=== PATIENT | male | born 1935 | race Asian ===

== ENCOUNTER → 2016-12-24 | Outpatient (CLI) | payer MEDICARE, BC ==
[~2016-12-24] MED LIST: ACETAMINOPHEN PO; ALLEGRA PO; AMARYL PO; APRESOLINE; ARICEPT5 MG PO; BENADRYL25 M3 PO; CATAPRES0.1 MG; CELEBREX50 MG; CIPRO250 M1 PO; CITRACAL200 M1; CLARITIN10 M3 PO; CLONIDINE HCL0.1 MG PO; CO Q-1010 MG; COATED ASPIRIN325 M1 PO; COZAAR; CRESTOR; CRESTOR10 MG PO; D3; DULCOLAX5 MG; FENOFIBRATE160 MG PO; FERROUS SULFATE PO; FLAGYL250 MG PO; FLOMAX0.4 M1; FLOMAX0.4 M1 PO; FUROSEMIDE40 MG PO; GLIMEPIRIDE1 M1 PO; GLYNASE; HYDRALAZINE HC100 MG PO; HYDRALAZINE HCL50 MG PO; IRON18 MG; LASIX PO; LASIX20 MG; LATANOPROST2.5 ML OP; METOPROLOL SUCC50 MG PO; MIRALAX17 G2 PO; MIRALAX17 GM PO; MULTI VITAMIN1 EACH PO; MULTI-DAY VITAM1 TAB; NORVASC2.5 MG PO; PLAVIX PO; PREDNISONE1 MG PO; SENNA8.6 M1 PO; SLEEP MD; SLEEPING TABLET25 M1; SOMNAPURE PO; SV FLAXSEED OI1 EACH PO; TART CHERRY CA1 EACH; TOPROL; TOPROL XL50 MG PO; TYLENOL PM; ULORIC40 MG; ULORIC80 MG PO; [UNRECOGNIZED DRUG - CODE]; [UNRECOGNIZED DRUG - OTHER]
--- NOTE | ~2016-12-24 | CT14 ---
[facility] A Service of [facility] & [facility] RADIOLOGY TEXT RESULTS PATIENT: NAHUN PRINGLE LOCATION: [facility] : 33 UNIT #: [id number] AGE: [address]: SABINA MCKEON MD SEX: M ORDER DR: [id number] [facility] [address] [place], [place] [address] [id number] O MR#: [id number] Acc #: [id number] NAME: NAHUN PRINGLE : 1935 SEX: M STUDY DATE/TIME: 12/24/2016 14:25 UNIT: [facility] ROOM: STUDY DESCRIPTION: CT Angio Abdomen and Pelvis Attending Physician: Sabina Mckeon Referring Physician: Sabina Mckeon Ordering Physician: Nikhil Mckeon M.D. Primary Care Physician: Mega Ivory M.D. MEDICAL IMAGING REPORT This report is preliminary unless electronic signature is present EXAM CT angiogram of the abdomen and pelvis, with and without contrast. HISTORY 81-year-old male with history of aortic aneurysm and EVAR. Routine follow-up. TECHNIQUE CT angiogram, abdomen and pelvis, performed before and after administration of IV contrast, using a multiphase stent graft protocol. Coronal, sagittal, and 3-D reformatted images were obtained. This CT exam was performed with one or more of the following radiation dose reduction techniques: automatic exposure control, adjustment of mA and/or kV according to patient size, and iterative reconstruction. COMPARISON STUDIES 12/24/2016 FINDINGS There is an EVAR. The stent graft is widely patent. There is no definite endoleak within the aneurysm sac. The aneurysm sac size is slightly smaller, measuring 5.6 x 5.1 cm. Previously, it was 5.8 x 5.2 cm. Above the stent graft, there is aneurysmal dilatation of the abdominal aorta, measuring about 5.6 x 4.9 cm. This is slightly larger than the prior study, where it measured 5.6 x 4.7 cm. The celiac artery is patent without significant narrowing. There is minimal narrowing at the origin of the superior mesenteric artery. There appear to be 2 right renal arteries. The cranial-most right renal artery is stented. The Caudal-most renal artery on the right demonstrates extensive plaque at its origin. Both of the renal arteries do appear patent. On the left, there are also 2 separate renal arteries. The main left renal artery does have some plaque at its origin, with significant narrowing. 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 [facility] A Service of [facility] RADIOLOGY TEXT RESULTS PATIENT: NAHUN PRINGLE LOCATION: [facility] : 33 UNIT #: [id number] AGE: [address]: SABINA MCKEON MD SEX: M ORDER DR: increased in size. Stable 1.9-cm dilatation of the left common iliac artery just after the distal end of the stent. Stable coils in the right internal iliac artery. CT OF THE ABDOMEN: There is scarring/atelectasis in the lung bases. Cholecystectomy. Liver unremarkable. Small cyst in the spleen. Both kidneys are small. The adrenal glands are unremarkable. The pancreas is unremarkable. PELVIS: There is diffuse thickening of the urinary bladder. Redemonstrated is irregular nodular enhancing soft tissue within the inferior portion of the urinary bladder. This may reflect prostatic tissue; however, mass cannot be excluded, as before. Consider urologic consultation. The colon is unremarkable. The appendix is normal. Bone windows demonstrate degenerative changes of the lumbar spine. IMPRESSION 1. Prior EVAR. 2. No definite endoleak. 3. Stent graft is patent. 4. Stable to slightly decreased aneurysm sac size. 5. Above the stent graft, there is slight increase in size of aneurysmal dilatation of the aorta, as described. Measurements as above. 6. Slightly increased left internal iliac artery size; measurements as above. 7. Additional findings, as described above in the body of the report are stable. Please see full report for complete details. Dictated by... Dung Cardona M.D. THIS IS AN ELECTRONICALLY VERIFIED REPORT Dung Cardona M.D. at 12/26/2016 4:31 PM KOSTA/chava TD: 12/26/2016 13:42 JOB #: [id number] MEDICAL IMAGING REPORT COPY
== END | disposition home or self-care (01) ==
LOC: CCAT 13:40
DX: I71.4 Abdominal aortic aneurysm, without rupture (principal); Z95.828 Presence of other vascular implants and grafts; Z98.890 Other specified postprocedural states
CPT/HCPCS: 74174; Q9967

== ENCOUNTER → 2017-04-03 | Outpatient (CLI) | payer MEDICARE, BC ==
--- NOTE | ~2017-04-03 | OR ---
Unit #: [id number] #: [id number] Patient: NAHUN PRINGLE [id number] [address] [place], [place] [address] [id number] O MR#: [id number] NAME: NAHUN PRINGLE ROOM: Date of Procedure: 04/03/2017 Admission Date: 04/03/2017 Surgeon: Quinn Sellers M.D. : 1935 Attending Physician: Quinn Sellers M.D. Primary Care Physician: Mega Ivory M.D. OPERATIVE REPORT PREOPERATIVE DIAGNOSIS Poorly functioning right arm arteriovenous fistula. POSTOPERATIVE DIAGNOSIS Poorly functioning right arm arteriovenous fistula. PROCEDURES PERFORMED 1. Right arm fistulogram. 2. Balloon angioplasty of the right innominate vein, cephalic vein, and fistula with 8 mm x 60 mm balloon. ANESTHESIA Conscious sedation. INDICATIONS FOR PROCEDURE This is a patient with a right brachiocephalic arteriovenous fistula with known previous stenosis who has had a pulsatile flow to it. He was recommended right arm fistulogram and possible intervention. He had a tunneled catheter through the right IJ. Risks and benefits were explained to the patient's family, who understood and agreed to proceed. DESCRIPTION OF PROCEDURE The patient was brought to the angiography suite and placed supine. He was monitored by a nurse in the room and remained stable. The right arm was cleaned, prepped, and draped in the usual sterile fashion. 1% lidocaine was infiltrated and right arm arteriovenous fistula was accessed using a 4-Palestinian micropuncture needle and a micro sheath was placed. Contrast was injected and images were obtained to the right atrium. After deciding to intervene, the sheath was exchanged for a 6-Palestinian sheath. A Glidewire was used to negotiate the stenosis into the right atrium. An 8 mm x 60 mm balloon was used to balloon angioplasty the innominate vein, axillary vein, and cephalic vein sequentially. High-grade stenosis was noted in all these areas which opened up nicely. Post angioplasty images revealed excellent results. There was some amount of the recoil of the innominate vein around the tunneled catheter. Sheaths and wires were removed and 4-0 Monocryl suture was used to close the hole in the skin. The patient was transported to the recovery room in stable condition. FINDINGS Right brachiocephalic AV fistula is patent. It however has multiple areas Unit #: [id number] #: [id number] Patient: NAHUN PRINGLE A of narrowing in the mid arm, distal arm near the shoulder and the cephalic arch. There is a high-grade stenosis of the innominate vein around the tunneled catheter as before. Postangioplasty images revealed good flow through all this areas with minimal residual narrowing and some recoil around the innominate vein. Dictated by... Uma Holm TD: 04/14/2017 09:34 JOB #: [id number] OPERATIVE REPORT Page 1 of 1 X Quinn Sellers MD X PROCEDURE OPERATIVE NOTE
[2017-04-03 12:30] LABS: INR 1.1; PARTIAL THROMBOPLASTIN TIME 24.4 SECONDS (23.5-31.3); PROTHROMBIN TIME (PATIENT) 11.4 SECONDS (10.0-11.7)
[2017-04-03 12:45] LABS: BUN/CREATININE RATIO 5.51; CREATININE SERUM 4.9 mg/dL (0.6-1.4); GLOM FILT RATE Estimated 10.1 mL/min (>60); POTASSIUM 4.3 mmol/L (3.5-5.1)
== END | disposition home or self-care (01) ==
LOC: CIVR 11:01
PROVIDERS: Surgery Vascular Surgery
DX: T82.590A Other mechanical complication of surgically created arteriovenous fistula, initial encounter (principal); I12.0 Hypertensive chronic kidney disease with stage 5 chronic kidney disease or end stage renal disease; E11.22 Type 2 diabetes mellitus with diabetic chronic kidney disease; N18.6 End stage renal disease; D63.1 Anemia in chronic kidney disease; Z99.2 Dependence on renal dialysis; I25.10 Atherosclerotic heart disease of native coronary artery without angina pectoris; I71.4 Abdominal aortic aneurysm, without rupture; I73.9 Peripheral vascular disease, unspecified; I48.91 Unspecified atrial fibrillation
CPT/HCPCS: 36415; 80048; 85610; 85730; C1725; C1894; J2250; J3010; Q9967

== ENCOUNTER → 2017-05-20 | Outpatient (CLI) | payer MEDICARE, BC ==
--- NOTE | ~2017-05-20 | US6 ---
[facility] A Service of [facility] & [facility] RADIOLOGY TEXT RESULTS PATIENT: NAHUN PRINGLE LOCATION: [facility] : 33 UNIT #: [id number] AGE: [address]: Himanshu Cornejo MD SEX: M ORDER DR: [id number] [facility] [address] [place], [place] [address] [id number] O MR#: [id number] Acc #: [id number] NAME: NAHUN PRINGLE : 1935 SEX: M STUDY DATE/TIME: 05/20/2017 10:44 UNIT: [facility] ROOM: STUDY DESCRIPTION: US Abdominal Limited Attending Physician: Himanshu Cornejo M.D. Referring Physician: Himanshu Cornejo M.D. Ordering Physician: Himanshu Cornejo M.D. Primary Care Physician: Mega Ivory M.D. MEDICAL IMAGING REPORT This report is preliminary unless electronic signature is present EXAM Right upper quadrant ultrasound 05/20/2017 HISTORY Chronic hepatitis B. Observation for hepatocellular carcinoma and cirrhosis. Cholecystectomy. Hypertension and hyperlipidemia. Patient on renal dialysis. FINDINGS The liver demonstrates a coarsened echotexture but no cystic or solid mass lesions are seen within the liver. The intra and extrahepatic bile ducts are not dilated. The gallbladder is surgically absent as per patient history. The common bile duct measures 2 mm. The pancreas is normal. The right kidney is atrophic measuring 7.6 cm in greatest diameter with increased cortical echogenicity and cortical thinning characteristic of medical renal disease. No evidence of hydronephrosis. IMPRESSION 1. Coarsened liver echotexture. No cystic or solid mass lesions identified within the liver. 2. Surgical absence of the gallbladder. 3. Right renal atrophy. Dictated by... Yaw Ward M.D. THIS IS AN ELECTRONICALLY VERIFIED REPORT Yaw Ward M.D. at 05/21/2017 2:37 PM EMELY/kori TD: 05/20/2017 19:49 JOB #: [id number] [facility] A Service of [facility] & [facility] RADIOLOGY TEXT RESULTS PATIENT: NAHUN PRINGLE LOCATION: [facility] #: [id number] : 33 UNIT #: [id number] AGE: [address]: Himanshu Cornejo MD SEX: M ORDER DR: MEDICAL IMAGING REPORT Page 1 of 1 COPY
== END | disposition home or self-care (01) ==
LOC: CGUS 05-15 09:00
DX: B18.1 Chronic viral hepatitis B without delta-agent (principal); K76.89 Other specified diseases of liver; N26.1 Atrophy of kidney (terminal); Z90.49 Acquired absence of other specified parts of digestive tract
CPT/HCPCS: 76705

== ENCOUNTER 2017-05-23 17:18 | Inpatient (IN) | payer MEDICARE, BC ==
[~2017-05-23] VITALS: Ht 165.1 cm; Wt 75.0 kg
--- NOTE | ~2017-05-23 | CR72 ---
[facility] A Service of [facility] RADIOLOGY TEXT RESULTS PATIENT: NAHUN PRINGLE LOCATION: [facility] - : 33 UNIT #: [id number] AGE: [address]: Morena Stevenson MD SEX: M ORDER DR: [id number] [facility] [address] [place], [place] [address] [id number] I MR#: [id number] Acc #: [id number] NAME: NAHUN PRINGLE : 1935 SEX: M STUDY DATE/TIME: 05/23/2017 21:27 UNIT: [address] ROOM: [facility] STUDY DESCRIPTION: CR Chest Single View Portable Attending Physician: Morena Stevenson M.D. Referring Physician: Edwin Collins M.D. Ordering Physician: Ed Wilner Vazquez M.D. Primary Care Physician: Mega Ivory M.D. MEDICAL IMAGING REPORT This report is preliminary unless electronic signature is present EXAM Single view chest. INDICATIONS Fever for 1 day. Cough and shortness of air. FINDINGS Single portable AP view of the chest compared to 07/23/2016. There is a right IJ dual-lumen catheter terminating over the right atrium. There is left chest wall pacemaker. The heart is enlarged. There are chronic interstitial opacities that are unchanged. No pneumothorax or pleural effusion. IMPRESSION 1. Stable cardiomegaly and chronic interstitial change. No new findings. Dictated by... Rashid Gray M.D. THIS IS AN ELECTRONICALLY VERIFIED REPORT Rashid Gray M.D. at 05/24/2017 8:02 PM TERA/dior TD: 05/24/2017 18:16 JOB #: [id number] MEDICAL IMAGING REPORT Page 1 of 1 COPY
--- NOTE | ~2017-05-23 | CO ---
Unit #: [id number] #: [id number] Patient: NAHUN CAMPOS [id number] [address] [address] [id number] I MR#: [id number] NAME: NAHUN CAMPOS ROOM: 331 Age: 81 Sex: M Admission Date: 05/24/2017 : 1935 Attending Physician: Morena Stevenson M.D. Primary Care Physician: Mega Ivory M.D. CONSULTATION REPORT REQUESTING PHYSICIAN Dr. Bradford REASON FOR CONSULTATION Sepsis. HISTORY OF PRESENT ILLNESS Mr. Campos is a pleasant 81-year-old Indian gentleman with a past medical history significant for end stage renal disease on hemodialysis, coronary artery disease, peripheral vascular disease, memory loss, diabetes and hypertension who was directly admitted from the dialysis center due to a temperature spike of 103 degrees. Patient currently at bedside, in no apparent distress, and he denies any shortness of air, cough, dysuria, shunt tenderness, nausea, vomiting, diarrhea, or any new rashes. He has a right upper arm shunt that was placed in July as well as a right subclavian tunneled cath which he is using for dialysis. Per patient, he doesn't always use the right upper extremity shunt due to some previous problems with it. He denies feeling bad prior to hospitalization or any other complaints. He has been started on vancomycin and Zosyn and we are now being consulted for antibiotic management and sepsis. Patient denies any recent travels outside of the country. PAST MEDICAL HISTORY 1. End stage renal disease, on hemodialysis. 2. Coronary artery disease. 3. Peripheral vascular disease. 4. Memory loss. 5. Diabetes. 6. Right upper arm shunt placement. 7. Right tunneled cath placement from July of last year. REVIEW OF SYSTEMS All negative except for those discussed in HPI. PHYSICAL EXAMINATION GENERAL: Awakens easily, resting in bed. VITAL SIGNS: Temperature 99.1, heart rate 62, respirations 17, blood pressure 170/86. GENERAL: Alert and oriented. CARDIOVASCULAR: Regular rate. PULMONARY: Clear to auscultation. Nonlabored. GI: Soft, nontender. Positive bowel sounds. SKIN: Right upper extremity shunt in place. Right upper arm edema. Right subclavian tunneled cath in place. No tenderness, no erythema. Unit #: [id number] #: [id number] Patient: NAHUN CAMPOS DIAGNOSTIC STUDIES LABORATORY DATA: Glucose is 140, creatinine 3.8, GFR is 13.8, sodium is 139, potassium is 4.1. HEMATOLOGY: White count 20.1, hemoglobin 7.7, platelets 80, hematocrit 33.9. IMAGING: No diagnostic images. Lactic acid is 1.5, previously 2.5. ASSESSMENT One-time fever spike and leukocytosis in a patient with end stage renal disease of unclear etiology. PLAN At this point, will continue vancomycin and Zosyn. Will also given the patient a one-time dose of tobramycin to cover for any possible multi-drug resistant organisms due to the fact that patient is a hemodialysis patient who is frequently at the dialysis center. Will rule out any possibilities of bacteremia or UTI. Will check a right upper arm ultrasound for left shunt due to edema and rule out any possible clots or DVTs. Will check a procalcitonin level today. Currently, patient is clinically stable in no apparent distress. Will follow up on cultures and monitor temp closely. Will discuss plan with MD and patient will also be seen by Dr. Yo today and any further recommendations will come from him. Again, thank you for consultation. We will continue to follow along. Dictated by... Nathalie Calvin APRN for Uma Mercedes/miladis TD: 05/24/2017 11:11 JOB #: [id number] CONSULTATION REPORT Page 1 of 1 X X CONSULTATION REPORT
--- NOTE | ~2017-05-23 | CO ---
Unit #: [id number] #: [id number] Patient: NAHUN PRINGLE [id number] [address] [place], [place] [address] [id number] I MR#: [id number] NAME: NAHUN PRINGLE. ROOM: 331 Age: 81 Sex: M Admission Date: 05/24/2017 : 1935 Attending Physician: Morena Stevenson M.D. Primary Care Physician: Mega Ivory M.D. Consultation Date: 05/24/2017 CONSULTATION REPORT CHIEF COMPLAINT Fever. HISTORY OF PRESENT ILLNESS He is an 81-year-old gentleman with a history of chronic kidney disease, requiring hemodialysis. He has a right brachiocephalic fistula and a right jugular tunneled dialysis catheter, which were placed on 07/26/[address] Sellers. The patient reports that his fistula has not been working adequately, so his tunneled catheter has not been removed. He underwent a fistulogram on 04/03/2017, which demonstrated central vein stenosis which was successfully treated with balloon angioplasty. However, he states that he has had difficulty with his recent dialysis treatments. He now presents with fever up to 103 and white blood count of 20,000. Consultation was requested for possible infection of his tunneled dialysis catheter. He denies any other complaints at the time of his evaluation. PAST MEDICAL HISTORY End-stage renal disease, requiring hemodialysis; coronary artery disease; type 2 diabetes mellitus; abdominal aortic aneurysm; chronic anemia; benign prostatic hypertrophy; gout; and history of high-grade AV block. PAST SURGICAL HISTORY Permanent pacemaker on the left side, endovascular stent graft repair of thoracic aortic aneurysm, ventral hernia repair, cataract surgery, circumcision, cholecystectomy, right jugular tunneled dialysis catheter, and right arm fistula. MEDICATIONS Plavix, Flomax, Uloric, clonidine, multivitamins, iron, hydralazine, metoprolol, and fish oil. ALLERGIES None. SOCIAL HISTORY He is and lives with his . He is a retired surgeon. He has never smoked. He drinks alcohol infrequently. FAMILY HISTORY Parents' health history is not known. REVIEW OF SYSTEMS 10-point review of systems is negative. Unit #: [id number] #: [id number] Patient: NAHUN PRINGLE PHYSICAL EXAMINATION VITAL SIGNS: Temperature 98.1, pulse 68, respirations 18, and blood pressure 128/72. GENERAL APPEARANCE: Mildly obese male. Pleasant and cooperative. Fully alert and oriented. Relatively stoic. Fair historian. No acute distress. HEENT: Extraocular movements intact. No xanthelasma of the eyelids. Oral mucosa is pink and moist. NECK: No JVD. No cervical bruits. LUNGS: Clear bilaterally. No use of accessory respiratory muscles. CHEST: There is a pacemaker in the left infraclavicular position. There is a right jugular tunneled dialysis catheter in the right infraclavicular position. There is no erythema, fluctuance, or drainage associated with the tunneled catheter exit site. HEART: Regular rate and rhythm without murmur. ABDOMEN: Soft, nondistended, and nontender. EXTREMITIES: There is a fistula in the right upper arm with a pulsatile thrill. There is no significant swelling of the right arm. Radial pulses are palpable bilaterally. Mild lower extremity edema. IMPRESSION 1. Possible tunneled catheter infection. The patient has been empirically started on antibiotics. 2. End-stage renal disease, requiring hemodialysis. 3. Coronary artery disease. 4. Type 2 diabetes mellitus. 5. Abdominal aortic aneurysm. 6. Hypertension. 7. High-grade atrioventricular block, status post permanent pacemaker placement. 8. Benign prostatic hypertrophy. 9. Gout. PLAN I will go ahead and remove the patient's tunneled catheter and send it for culture. My recommendation would be to use his right arm fistula for access. If there is difficulty with adequate flow through his fistula, he may require another fistulogram and intervention to promote flow. If his fistula cannot be made to function appropriately, he may require a temporary dialysis catheter until good long-term access can be established. Dictated by... Uma Gonzales/william TD: 05/25/2017 15:00 JOB #: [id number] Unit #: [id number] #: [id number] Patient: NAHUN PRINGLE CONSULTATION REPORT Page 1 of 1 X Tim Pineda MD CONSULTATION REPORT
--- NOTE | ~2017-05-23 | CO ---
Unit #: [id number] #: [id number] Patient: NAHUN PRINGLE [id number] [address] [place] [id number] [place], [place] [address] [id number] I MR#: [id number] NAME: NAHUN PRINGLE. ROOM: 331 Age: 81 Sex: M Admission Date: 05/24/2017 : 1935 Attending Physician: Morena Stevenson M.D. Primary Care Physician: Mega Ivory M.D. Consultation Date: 05/24/2017 CONSULTATION REPORT REASON FOR CONSULTATION Renal failure. Thank you very much for asking me to see this patient again in consultation. 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 He, I believe, received vancomycin, and got blood cultures, but I am not sure at that point, and presented here late last night or early this morning. His temperature has improved. He was started on Zosyn and vanc here. Surgery has been consulted and they removed his tunneled catheter this morning. He actually is alert. Denies any chest pain or shortness of breath. He denies any nausea or vomiting. He still makes some urine without any burning. He denies any other major problems except for difficulty sleeping. PAST MEDICAL HISTORY History of end-stage renal disease, as mentioned above, history of diabetes mellitus, hypertension, history of some mild dementia, history of abdominal aortic aneurysm, status post stents in the past, history of atherosclerotic coronary artery disease, status post pacemaker, history of BPH. ALLERGIES No known drug allergies. MEDICATIONS At home include Plavix, Flomax, Uloric, clonidine, multivitamin, iron, hydralazine, metoprolol and fish oil. SOCIAL HISTORY Again, he is a retired physician. He is still. No alcohol currently or smoking. REVIEW OF SYSTEMS As mentioned in the HPI, otherwise negative. PHYSICAL EXAMINATION GENERAL: He is alert. VITAL SIGNS: His T-max here is 99.1, pulse is 62 to 68, blood pressure is Unit #: [id number] #: [id number] Patient: NAHUN PRINGLE 121 to 170/69 to 86. HEENT: Normocephalic and atraumatic. Pupils are equal, round, and reactive to light. Extraocular muscles are intact. Hearing appears normal. Mouth clear. No erythema. No exudate. NECK: Supple. No JVD. CHEST: He has a bandage now with a tunneled catheter was removed from his upper right chest. CARDIAC: He appears to have a fairly regular rhythm without a rub. LUNGS: Clear bilaterally. ABDOMEN: Bowel sounds positive. Nontender. Soft. EXTREMITIES: Some trace lower extremity swelling. He has a fistula in his right upper arm with a scab with a positive thrill. : Deferred. DIAGNOSTIC STUDIES LABORATORY RESULTS: He had a BUN of 22, creatinine 3.8, potassium 4.1, bicarb is 33, glucose is 140, calcium is 8.7, albumin is 3.4. His INR is 1.1. White count 20,100, platelets 80,000, hemoglobin is 10.7. His blood cultures are pending. ASSESSMENT/PLAN 1. End-stage renal disease. Again, the patient was dialysed yesterday using the tunneled catheter. We will try to use the fistula again on Friday morning. If it does not work, we will either need a fistulogram and angioplasty versus new possible temporary Shiley catheter or replacement of a tunneled catheter. All depends on blood cultures etc. Right now, his volume status is good. We will check electrolytes in the morning. 2. Fever, probable tunneled catheter infection. Await culture results. Again on vancomycin and Zosyn currently. 3. History of hypertension. We will follow blood pressure trends and adjust medications as clinically indicated. Dictated by... Uma Arias/william TD: 05/26/2017 04:36 JOB #: [id number] CONSULTATION REPORT Page 1 of 1 X Tai Lechuga MD X CONSULTATION REPORT
--- NOTE | ~2017-05-23 | DS ---
Unit #: [id number] #: [id number] Patient: NAHUN PRINGLE [id number] [address] [place], [place] [address] [id number] I MR#: [id number] NAME: NAHUN PRINGLE. ROOM: 331 Age: 81 Sex: M Admission Date: 05/23/2017 : 1935 Discharge Date: 05/28/2017 Attending Physician: Morena Stevenson M.D. Primary Care Physician: Mega Ivory M.D. DISCHARGE SUMMARY REASON FOR ADMISSION Fever. 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 He had seen his primary care physician and was noted to have a tunneled catheter which was still in place secondary to fistula difficulties he was having at time of dialysis. Primary care physician became concerned, possible underlying tunneled catheter infection and, therefore, asked patient to go to the ER. The patient was initially placed on telemetry floor. He underwent routine laboratory studies including blood cultures which were ascertained which did come back showing MRSA bacteremia. Repeat blood cultures were negative. However, patient was placed on vancomycin and consultation was placed to infectious disease services. Infectious disease services subsequently recommended tunneled catheter be removed eventually. Vascular services were consulted. Tunneled catheter was removed. Catheter tip was sent but no growth was revealed. Because no acute bacterial growth was noted on catheter tip, this prompted a 2D echocardiogram to rule out the possibility of underlying endocarditis. This came back negative. Dr. Gruber [facility] was consulted secondary to patient's history of end stage renal disease and patient as maintained on hemodialysis while he was here. At this point in time, repeat blood cultures have been negative. Source of MRSA bacteremia is not clear. Therefore, patient will be discharged with IV vancomycin until June 08, 2017. This vancomycin will be addressed and/or taken care of during the time patient has dialysis. Dr. Pineda and associates were consulted this hospital admission and is has been recommended to follow up with Dr. Sellers in one to two weeks post discharge. Patient did undergo fistulogram while he was here. Appropriate fistula corrections were made. Patient will have another Unit #: [id number] #: [id number] Patient: NAHUN PRINGLE A follow up with Dr. Sellers in two weeks to discuss further options in regards to fistula and/or management. FINAL DISCHARGE DIAGNOSES 1. Fever on admission. 2. Methicillin resistant Staph aureus bacteremia, source unclear. 3. Status post tunneled catheter removal. 4. Right upper extremity fistula, status post fistulogram with history of malfunction in past. 5. End stage renal disease, on hemodialysis. 6. Prior history of coronary artery disease. 7. Type 2 diabetes. 8. Anemia, likely multifactorial, chronic anemia secondary to end stage renal disease in origin. 9. Prior history of abdominal aortic aneurysm 5.7 cm. 10. Peripheral vascular disease history. 11. Hypertension. 12. History of atrioventricular block, status post permanent pacemaker placement. 13. Gout. FINAL DISCHARGE MEDICATIONS 1. IV vancomycin to be continued through June 08, 2017. Dosage to be conducted through hemodialysis sessions. 2. Toprol XL 50 mg p.o. daily. 3. MiraLAX daily. 4. Catapres 0.1 mg p.o. t.i.d. 5. Hydralazine 100 mg p.o. q.8. 6. Tylenol 650 mg p.o. q.6 p.r.n. 7. Flomax 0.4 mg p.o. q. h.s. 8. Ferrous gluconate 324 mg p.o. b.i.d. 9. Multivitamin daily. 10. Flaxseed daily. 11. Plavix 75 mg p.o. daily. 12. Uloric 80 mg p.o. q. a.m. DISCHARGE CONDITION Stable. DISCHARGE DISPOSITION Home. Dictated by... Uma Jones TD: 05/29/2017 09:20 JOB #: [id number] Unit #: [id number] #: [id number] Patient: NAHUN PRINGLE DISCHARGE SUMMARY Page 1 of 1 X Morena Stevenson MD X DISCHARGE SUMMARY
--- NOTE | ~2017-05-23 | US140 ---
[facility] A Service of [facility] & [facility] RADIOLOGY TEXT RESULTS PATIENT: NAHUN PRINGLE LOCATION: [facility] - : 33 UNIT #: [id number] AGE: [address]: Morena Stevenson MD SEX: M ORDER DR: [id number] [facility] [address] [place], [place] [address] [id number] I MR#: [id number] Acc #: [id number] NAME: NAHUN PRINGLE. : 1935 SEX: M STUDY DATE/TIME: 05/24/2017 9:38 UNIT: [address] ROOM: [facility] STUDY DESCRIPTION: US UE Veins Unilat or Ltd Stdy Attending Physician: Morena Stevenson M.D. Ordering Physician: Morena Stevenson M.D. Primary Care Physician: Mega Ivory M.D. MEDICAL IMAGING REPORT This report is preliminary unless electronic signature is present EXAM Ultrasound upper extremity veins unilateral. HISTORY Right upper extremity edema for 1 day. History of DVT a few months ago per patient but I do not have imaging documentation of that. The patient does have evidence of a dialysis graft right upper extremity. FINDINGS Realtime ultrasonography of the right upper extremity performed with 2-D cox-scale imaging with compression, color-flow Doppler imaging, and waveform analysis. Technologist does not include any imaging of the graft. This is a limited exam. Normal flow and compressibility is seen in the visualized vessels, proximal and distal cephalic, proximal and distal basilic, brachial, axillary and downstream internal jugular vein into the subclavian vein. IMPRESSION No convincing evidence for acute appearing deep venous thrombosis or superficial venous thrombosis right upper extremity venous system. This is a somewhat limited exam. The patient has a known dialysis graft in the right upper extremity and it is not imaged. Dictated by... Maria Elena Conn M.D. THIS IS AN ELECTRONICALLY VERIFIED REPORT Maria Elena Conn M.D. at 05/25/2017 3:53 PM SAC/bd TD: 05/25/2017 14:58 JOB #: [id number] [facility] A Service of [facility] & [facility] RADIOLOGY TEXT RESULTS PATIENT: NAHUN PRINGLE LOCATION: [facility] 331-01 : [birth year] UNIT #: [id number] AGE: [address]: Morena Stevenson MD SEX: M ORDER DR: MEDICAL IMAGING REPORT Page 1 of 1 COPY
--- NOTE | ~2017-05-23 | HP ---
Unit #: [id number] #: [id number] Patient: NAHUN PRINGLE [id number] [address] [place], [place] [address] [id number] I MR#: [id number] NAME: NAHUN PRINGLE. ROOM: 331 Age: 81 Sex: M Admission Date: 05/24/2017 : 1935 Attending Physician: Morena Stevenson M.D. Primary Care Physician: Mega Ivory M.D. HISTORY AND PHYSICAL CHIEF COMPLAINT Fever. 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 He is currently on hemodialysis. He has a tunnel catheter on right chest and also he has a right arm fistula but using also the tunneled catheter for hemodialysis. He had hemodialysis today and developed a fever of 103 and was sent to the emergency room. On workup, he was found to have white count 20,000, lactic acid 2.5, eventually being admitted for sepsis, unknown course. Could be most likely the tunneled catheter. Otherwise, he is stable. Denies chest pain, he denies nausea, vomiting. He has a fever but denies cough. He said he is still making urine, mostly at nighttime. We are unable to get urine at this time. We are in the process. He denies any other complaint. PAST MEDICAL HISTORY 1. History of end stage renal disease, on hemodialysis. 2. Abnormal aortic aneurysm 5.7 cm. 3. Diabetes, currently on a diet. 4. Anemia of chronic disease. 5. Coronary artery disease. 6. Peripheral vascular disease. 7. Hypotension. 8. Benign prostatic hypertrophy. 9. History of gout. 10. History of high grade AV block, status post permanent pacemaker. PAST SURGICAL HISTORY 1. Status post tunneled catheter. 2. Status post permanent pacemaker for high degree AV block. 3. History of status post endovascular stent repair to the thoracic aortic aneurysm. 4. History of ventral hernia repair. 5. History of cataract extraction. 6. History of right arm fistula. 7. History of circumcision. 8. History of cholecystectomy. 9. History of colonoscopy several times. 10. Right upper extremity shunt. Unit #: [id number] #: [id number] Patient: NAHUN PRINGLE ALLERGIES No known drug allergies. MEDICATIONS Medications from home is followin. Plavix. 2. Flomax. 3. Uloric. 4. Clonidine. 5. Multivitamin. 6. Iron. 7. Hydralazine. 8. Metoprolol. 9. Fish oil. Doses are not available at time of dictation. We will call the pharmacy. ALLERGIES No known drug allergies. FAMILY HISTORY Reviewed and noncontributory. SOCIAL HISTORY Patient lives with . He is a retired surgeon. He is a lifelong nonsmoker, drinks currently alcohol. No other illicit drug use. REVIEW OF SYSTEMS Negative except as in History of Present Illness. PHYSICAL EXAMINATION GENERAL: 81-year-old gentleman lying in the bed comfortably, currently not in any distress. He is alert, awake, oriented x3. VITAL SIGNS: Temperature maximum was 103, heart rate 68, respiratory rate 16, blood pressure 128/69, oxygen 95% on room air. HEENT: Head is atraumatic, normocephalic. Pupils equal, reactive to light and accommodation. Extraocular muscles intact. NECK: Supple. No JVD, no thyromegaly. CHEST: Lungs clear. No rhonchi, no wheezing. Right upper chest - positive tunneled catheter but there is a negative cellulitis around the catheter site. HEART: S1, S2. Regular rate and rhythm. ABDOMEN: Soft, nontender, nondistended. Bowel sounds positive. EXTREMITIES: Inspection normal. No cyanosis, no clubbing, no edema. Right arm positive (1) with good thrill. No cellulitis around the shunt. PSYCH: Normal mood and affect. NEURO: Alert, oriented x3. No gross focal neurologic deficit. Cranial nerves II-XII intact. DIAGNOSTIC STUDIES LABORATORY: Sodium 139, potassium 4.1, chloride 97, CO2 33, glucose 140, BUN 22, creatinine 3.8. LFTs within normal limits. White count 20, hemoglobin 10, hematocrit 33, platelets 80. INR is 1.1. Unit #: [id number] #: [id number] Patient: ECARMA,NAHUN A Lactic acid level 2.5. IMAGING: He had an ultrasound done as an outpatient on 05/20/17 that shows surgical absence of gallbladder, right renal atrophy. Chest x-ray shows stable cardiomegaly and chronic interstitial changes. ASSESSMENT AND PLAN 1. Fever with leukocytosis, most likely secondary to sepsis with increased lactic acid level: Questionable source. Could be tunneled catheter source. Will get also UA and start empirically on antibiotics, Zosyn and vancomycin. Ask ID to evaluate. 2. End stage renal disease, on hemodialysis: Ask Dr. Lechuga to evaluate. 3. History of abdominal aortic aneurysm 5.7 cm. 4. History of diabetes mellitus, on diet. 5. Anemia of chronic disease. 6. Coronary artery disease. 7. History of peripheral vascular disease. 8. Hypertension. 9. History of high grade AV block, status post permanent pacemaker. 10. History of benign prostatic hypertrophy. 11. History of gout. 12. DVT prophylaxis: Will place the patient on SCDs. Dictated by George Bradford M.D. GREGORY/miladis TD: 05/24/2017 09:17 JOB #: [id number] HISTORY AND PHYSICAL Page 1 of 1 X X HISTORY AND PHYSICAL
[~2017-05-23 17:18] MED LIST changes: -ACETAMINOPHEN PO; -FERROUS SULFATE PO
[2017-05-23 22:11] LABS: BASOPHIL# 0.1 X10e3 (0-0.3); BASOPHIL% 0.5 % (0-2.5); EOSINOPHIL% 0.2 % (0.0-7.0); HEMATOCRIT 33.9 % (38.0-50.0); HEMOGLOBIN 10.7 gm/dL (13.0-16.0); LYMPHOCYTE# 0.7 X10e3 (1.0-3.5); LYMPHOCYTE% 3.5 % (17.0-45.0); MEAN CELL VOLUME 81.9 FL (83-96); MEAN CORPUSCULAR HGB CONC 31.7 g/dL (30-36); MEAN PLATELET VOLUME 8.5 FL (6.5-11.5); MONOCYTE# 1.6 X10e3 (0-1.0); MONOCYTE% 7.9 % (3.0-12.0); NEUTROPHIL# 17.6 X10e3 (1.5-7.1); NEUTROPHIL% 87.9 % (40-75); RED BLOOD COUNT 4.13 X10e (3.90-5.60); RED CELL DISTRIBUTION WIDTH 16.3 % (11.0-15.5); WHITE BLOOD COUNT 20.1 X10e3 (4.0-10.5)
[2017-05-23 22:16] LABS: INR 1.1; PARTIAL THROMBOPLASTIN TIME 24.5 SECONDS (23.5-31.3); PROTHROMBIN TIME (PATIENT) 11.7 SECONDS (10.0-11.7)
[2017-05-23 22:21] LABS: DIFF IND YES; PLATELET COUNT 80 X10e3 (140-420)
[2017-05-23 22:26] LABS: ANISOCYTOSIS MOD; OVALOCYTES PRESENT; PLATELET ESTIMATE INCREASED (NORMAL)
[2017-05-23 22:27] LABS: POIKILOCYTOSIS SL; STOMATOCYTE PRESENT
[2017-05-23 22:28] LABS: ALBUMIN SERUM 3.4 g/dL (3.5-5.0); BILIRUBIN, DIRECT 0.2 mg/dL (0.0-0.2); BILIRUBIN,INDIRECT 0.6 mg/dL (0.0-0.9); BILIRUBIN,TOTAL 0.8 mg/dL (0.2-2.0); BUN/CREATININE RATIO 5.78; CALCIUM SERUM 8.7 mg/dL (8.4-10.2); CREATININE SERUM 3.8 mg/dL (0.6-1.4); GLOM FILT RATE Estimated 13.8 mL/min (>60); POTASSIUM 4.1 mmol/L (3.5-5.1); PROTEIN TOTAL SERUM 6.8 g/dL (6.0-8.3)
[2017-05-24 11:01] LABS: URINE SOURCE CLEAN CATCH
[2017-05-24 11:06] LABS: URINE APPEARANCE CLEAR; URINE BILIRUBIN NEG (NEG); URINE BLOOD NEG (NEG); URINE COLOR YELLOW; URINE GLUCOSE NEG (NEG); URINE KETONE NEG (NEG); URINE LEUKOCYTE ESTERASE TRACE (NEG); URINE NITRATE NEG (NEG); URINE PROTEIN 3+ (NEG); URINE SPECIFIC GRAVITY 1.016 (1.003-1.035)
[2017-05-24 11:09] LABS: URINE BACTERIA AUWI NEG (NEGATIVE); URINE SQUAMOUS EPITHELIAL CELL NONE SEEN /[HPF]
[2017-05-24 11:18] LABS: CULTURE INDICATED? NO; URBCS1 AUWI 0-2 /[HPF] (0-2)
[2017-05-25 05:29] LABS: BASOPHIL# 0.1 X10e3 (0-0.3); BASOPHIL% 0.5 % (0-2.5); DIFF IND NO; EOSINOPHIL# 0.3 X10e3 (0-0.7); EOSINOPHIL% 2.4 % (0.0-7.0); HEMATOCRIT 29.1 % (38.0-50.0); HEMOGLOBIN 9.6 gm/dL (13.0-16.0); LYMPHOCYTE% 8.7 % (17.0-45.0); MEAN CELL VOLUME 81.7 FL (83-96); MEAN CORPUSCULAR HEMOGLOBIN 27.1 PG (28-34); MEAN CORPUSCULAR HGB CONC 33.2 g/dL (30-36); MEAN PLATELET VOLUME 8.7 FL (6.5-11.5); MONOCYTE# 1.5 X10e3 (0-1.0); MONOCYTE% 12.7 % (3.0-12.0); NEUTROPHIL# 8.8 X10e3 (1.5-7.1); NEUTROPHIL% 75.7 % (40-75); PLATELET COUNT 65 X10e3 (140-420); RED BLOOD COUNT 3.56 X10e (3.90-5.60); RED CELL DISTRIBUTION WIDTH 16.1 % (11.0-15.5); WHITE BLOOD COUNT 11.7 X10e3 (4.0-10.5)
[2017-05-25 05:47] LABS: BUN/CREATININE RATIO 8.07; CALCIUM SERUM 7.7 mg/dL (8.4-10.2); CREATININE SERUM 5.7 mg/dL (0.6-1.4); GLOM FILT RATE Estimated 8.4 mL/min (>60); POTASSIUM 3.9 mmol/L (3.5-5.1)
[2017-05-26 05:19] LABS: BASOPHIL# 0.1 X10e3 (0-0.3); BASOPHIL% 0.9 % (0-2.5); EOSINOPHIL# 0.5 X10e3 (0-0.7); HEMATOCRIT 31.4 % (38.0-50.0); HEMOGLOBIN 10.3 gm/dL (13.0-16.0); LYMPHOCYTE# 1.3 X10e3 (1.0-3.5); LYMPHOCYTE% 13.8 % (17.0-45.0); MEAN CELL VOLUME 80.8 FL (83-96); MEAN CORPUSCULAR HEMOGLOBIN 26.4 PG (28-34); MEAN CORPUSCULAR HGB CONC 32.7 g/dL (30-36); MEAN PLATELET VOLUME 9.2 FL (6.5-11.5); MONOCYTE# 1.1 X10e3 (0-1.0); MONOCYTE% 11.4 % (3.0-12.0); NEUTROPHIL# 6.6 X10e3 (1.5-7.1); NEUTROPHIL% 68.9 % (40-75); PLATELET COUNT 89 X10e3 (140-420); RED BLOOD COUNT 3.88 X10e (3.90-5.60); RED CELL DISTRIBUTION WIDTH 15.7 % (11.0-15.5); WHITE BLOOD COUNT 9.6 X10e3 (4.0-10.5)
[2017-05-26 05:20] LABS: DIFF IND NO
[2017-05-26 05:55] LABS: BUN/CREATININE RATIO 8.71; GLOM FILT RATE Estimated 6.6 mL/min (>60); POTASSIUM 4.4 mmol/L (3.5-5.1)
[2017-05-27 04:48] LABS: HEMATOCRIT 31.2 % (38.0-50.0); HEMOGLOBIN 10.4 gm/dL (13.0-16.0); MEAN CELL VOLUME 81.4 FL (83-96); MEAN CORPUSCULAR HEMOGLOBIN 27.1 PG (28-34); MEAN CORPUSCULAR HGB CONC 33.3 g/dL (30-36); MEAN PLATELET VOLUME 8.6 FL (6.5-11.5); RED BLOOD COUNT 3.84 X10e (3.90-5.60); RED CELL DISTRIBUTION WIDTH 15.7 % (11.0-15.5); WHITE BLOOD COUNT 6.8 X10e3 (4.0-10.5)
[2017-05-27 05:12] LABS: BUN/CREATININE RATIO 5.74; CALCIUM SERUM 7.7 mg/dL (8.4-10.2); CREATININE SERUM 4.7 mg/dL (0.6-1.4); GLOM FILT RATE Estimated 10.7 mL/min (>60); POTASSIUM 4.3 mmol/L (3.5-5.1)
[2017-05-28] MEDS ORDERED: ACETAMINOPHEN PO (11:29)
[2017-05-28] MEDS ORDERED: FERROUS SULFATE PO (11:30)
== END 2017-05-28 18:19 | disposition home or self-care (01) | DRG 871 ==
LOC: CED 17:18 → C3A PCU 23:55 → CEDOF 23:55 → CED 05-24 00:26 → CEDOF 05-24 00:27 → C3A PCU 05-24 00:27
PROVIDERS: Emergency Medicine; Family Medicine; Internal Medicine; Internal Medicine Nephrology; Orthopaedic Surgery
PROC: 5A1D60Z (ICD-10-PCS; principal; 2017-05-24)
PROC: 05PYX3Z Removal of Infusion Device from Upper Vein, External Approach (ICD-10-PCS; 2017-05-24)
PROC: B246YZZ Ultrasonography of Right and Left Heart using Other Contrast (ICD-10-PCS; 2017-05-25)
DX: A41.02 Sepsis due to Methicillin resistant Staphylococcus aureus (principal); N18.6 End stage renal disease; I12.0 Hypertensive chronic kidney disease with stage 5 chronic kidney disease or end stage renal disease; E11.22 Type 2 diabetes mellitus with diabetic chronic kidney disease; N39.0 Urinary tract infection, site not specified; B18.1 Chronic viral hepatitis B without delta-agent; Z99.2 Dependence on renal dialysis; I25.10 Atherosclerotic heart disease of native coronary artery without angina pectoris; E11.51 Type 2 diabetes mellitus with diabetic peripheral angiopathy without gangrene; R41.3 Other amnesia; I71.4 Abdominal aortic aneurysm, without rupture; D63.1 Anemia in chronic kidney disease; M10.9 Gout, unspecified; Z79.01 Long term (current) use of anticoagulants; Z95.0 Presence of cardiac pacemaker; Z98.49 Cataract extraction status, unspecified eye; Z90.49 Acquired absence of other specified parts of digestive tract; K76.89 Other specified diseases of liver; N26.1 Atrophy of kidney (terminal)
CPT/HCPCS: 36415; 71010; 80048; 80076; 80202; 81003; 82308; 82550; 82947; 83605; 85025; 85027; 85610; 85730; 87040; 87070; 87077; 87186; 93306; 93971; 94760; 99291; J0878; J2543; J3260; J3370

== ENCOUNTER 2017-06-15 08:16 | Emergency (ER) | payer MEDICARE, BC ==
[~2017-06-15 08:16] MED LIST changes: +ACETAMINOPHEN PO; +FERROUS SULFATE PO
== END 2017-06-15 09:46 | disposition home or self-care (01) ==
LOC: CED 08:16
DX: K91.840 Postprocedural hemorrhage of a digestive system organ or structure following a digestive system procedure (principal); I10 Essential (primary) hypertension; E11.9 Type 2 diabetes mellitus without complications
CPT/HCPCS: 99283